=== PATIENT | female | born 1955 | race Caucasian/White ===

== ENCOUNTER 2018-07-08 07:40 | Day surgery (SDC) | payer BC ==
[2018-07-07 09:51] VITALS: BMI 26.9
[~2018-07-08 07:40] MED LIST: LACTATED RINGERS 1,000 ML IV SCH; LIDOCAINE 1% 20 ML VIAL (10MG/ML) FOR IV START INTRADERMA PRN
[2018-07-08 08:37] VITALS: TEMP 97.1
[2018-07-08] MEDS ORDERED: fentaNYL (PF) 50 MCG/ML 2 ML AMP IVP ONE (08:39)
[2018-07-08] MEDS ORDERED: MIDAZOLAM 2 MG/2 ML VIAL ONE (08:46)
[2018-07-08] MEDS ORDERED: PROPOFOL 10 MG/ML 20 ML VIAL IV ONE (08:46)
[2018-07-08] MEDS ORDERED: fentaNYL (PF) 50 MCG/ML 2 ML AMP ONE (08:46)
--- NOTE | 2018-07-08 09:01 | P.PCN ---
Date of Procedure: 07/08/18 Procedure(s) Performed: BRIEF HISTORY: Patient is a 63-year-old pleasant white white female, scheduled for an elective colonoscopy as a part of evaluation of intermittent rectal bleeding for the last 1 month duration. She has been having some constipation for the same duration. PROCEDURE PERFORMED: Colonoscopy. PREOPERATIVE DIAGNOSIS: Rectal bleeding. IV sedation per Anesthesia. PROCEDURE: After informed consent was obtained, the patient, was brought into the endoscopy unit. IV sedation was administered by Anesthesia under continuous monitoring. Digital rectal examination was normal. Initially the Olympus CF- 160 flexible video colonoscope was then inserted in the rectum, gradually advanced into the cecum without any difficulty. Careful examination was performed as the scope was gradually being withdrawn. Ileocecal valve and the appendiceal orifice were visualized and appeared normal. Prep was excellent. Mucosa of the cecum, ascending colon, transverse colon, descending colon, sigmoid colon, and rectum appeared normal. Scattered sigmoid diverticulosis. Retroflexion was performed in the rectum and no lesions were seen. The patient tolerated the procedure well. IMPRESSION: Normal-appearing colon from rectum to cecum with no evidence of colorectal neoplasia. Scattered sigmoid diverticulosis. RECOMMENDATIONS: Findings of this examination were discussed with the patient as well as a family. She was advised to be a high-fiber diet and take fiber supplements on a regular basis. She can have a repeat screening colonoscopy in 10 years.
[2018-07-08 09:18] VITALS: RESP 16
[2018-07-08 09:50] VITALS: BP 100/62; PULSE 65
== END 2018-07-08 09:51 | disposition home or self-care (01) ==
LOC: ORWHC2ENDO 07:40
PROVIDERS: ATTEND Internal Medicine Gastroenterology
DX: K62.5 Hemorrhage of anus and rectum (principal); K57.30 Diverticulosis of large intestine without perforation or abscess without bleeding; K59.00 Constipation, unspecified; E07.9 Disorder of thyroid, unspecified; K21.9 Gastro-esophageal reflux disease without esophagitis; Z85.3 Personal history of malignant neoplasm of breast; Z98.84 Bariatric surgery status; G25.2 Other specified forms of tremor; Z79.2 Long term (current) use of antibiotics; Z79.890 Hormone replacement therapy; Z79.891 Long term (current) use of opiate analgesic; Z79.810 Long term (current) use of selective estrogen receptor modulators (SERMs); Z79.899 Other long term (current) drug therapy; Z88.0 Allergy status to penicillin; Z88.8 Allergy status to other drugs, medicaments and biological substances; Z91.048 Other nonmedicinal substance allergy status
CPT/HCPCS: 45378; J2250; J3010; J2704

== ENCOUNTER → 2023-12-17 | Outpatient (CLI) | payer MEDICARE, BC ==
--- NOTE | 2023-12-17 14:14 | MR ---
EXAMINATION TYPE: MR cervical spine wo con DATE OF EXAM: 12/17/2023 1:18 PM COMPARISON: NONE HISTORY: Neck pain, headaches, BUE radiculopathy. Multiplanar MultiSpin echo imaging of the cervical spine was performed. Comparison: none C2-C3: No evidence for degenerative disc disease. No disc bulge/herniation or protrusion. No Canal stenosis. Foramina are patent bilaterally. C3-C4: No evidence for degenerative disc disease. No disc bulge/herniation or protrusion. No Canal stenosis. Foramina are patent bilaterally. C4-C5: Mild disc desiccation. Small left paracentral disc bulge. No herniation or central stenosis. N o foraminal encroachment. C5-C6: Moderate to severe disc desiccation. Posterior disc bulge. Effacement ventral thecal sac with mild central stenosis seen. Left greater than right foraminal encroachment. C6-C7: Moderate to severe disc desiccation. Posterior disc bulge. Effacement ventral thecal sac with mild central stenosis seen. Left greater than right foraminal encroachment. C7-T1: No evidence for degenerative disc disease. No disc bulge/herniation or protrusion. No Canal stenosis. Foramina are patent bilaterally. Cervical segments are intact. There is normal alignment. Cervical spinal cord is of normal signal. Craniovertebral junction relationships are within normal limits. IMPRESSION: 1. Mild central stenosis at C5-6 and C6-7 as outlined above.
== END | disposition home or self-care (01) ==
LOC: RADMRIMAIN 12:37
PROVIDERS: ATTEND Orthopaedic Surgery
DX: G95.9 Disease of spinal cord, unspecified (principal); M48.02 Spinal stenosis, cervical region; M54.12 Radiculopathy, cervical region
CPT/HCPCS: 72141

== ENCOUNTER → 2023-12-22 | Outpatient (CLI) | payer MEDICARE, BC | LOC: PNWHC3 10:43 | PROVIDERS: ATTEND Specialist | DX: M48.062 Spinal stenosis, lumbar region with neurogenic claudication | CPT/HCPCS: 99211 ==

== ENCOUNTER 2024-01-01 06:41 | Day surgery (SDC) | payer MEDICARE, BC ==
[2024-01-01] MEDS ORDERED: methylPREDNISolone ACETATE 80 MG/ML 1 ML VIAL ONE (08:26)
[2024-01-01] MEDS ORDERED: ROPIVACAINE 5MG/ML 20ML VIAL ONE (08:26)
--- NOTE | 2024-02-17 18:21 | FL ---
EXAMINATION TYPE: FL guided pain mgmt statistic DATE OF EXAM: 01/20/2024 4:52 PM COMPARISON: Pre Operative Images if available both CT/MRI or plain film CLINICAL INDICATION: Female, 69 years old with history of LESI; TECHNIQUE: FL guided pain mgmt statistic, multiple fluoroscopic images provided for procedure. Total fluoroscopy time: 8.1 seconds Total submitted images to PACS: 2 DAP: 0.2928 mGym2 Gycm2 uGym2 cGycm2 or equivalent. FINDINGS: Fluoroscopic images during injection for pain management demonstrate multilevel degeneration changes throughout the spine. No evidence for fracture. No acute process identified. IMPRESSION: 1. No evidence for intraoperative complication. 2. Please see the operative/procedural note for further details. [facility], , 02/17/2024 6:18 PM
== END 2024-01-01 09:11 ==
LOC: ORPAIN 06:41
PROVIDERS: ATTEND Pain Medicine Interventional Pain Medicine
DX: M47.26 Other spondylosis with radiculopathy, lumbar region (principal)
CPT/HCPCS: 62323

== ENCOUNTER → 2024-01-15 | Outpatient (CLI) | payer MEDICARE, BC ==
[2024-01-15 10:29] VITALS: BP 119/65; PULSE 85; RESP 17
--- NOTE | 2024-01-15 14:39 | P.PAINPG ---
Objective - Vital Signs Vital signs: Intake & Output 01/14/24 01/15/24 01/15/24 18:59 06:59 18:59 Weight 143 kg PQRS Measure Charge Sheet Comment: A 68 yr old female w at side with a history of severe and chronic LBP secondary to lumbar DDD and spondylosis with facet arthropathy without myelopathy presents today for evaluation s/p BAO L4-L5 #1. Pt states she experienced 20% pain relief s/p procedure. Pain level is provoked at 6 /10 in intensity, constant, predominantly axial, localized in the lumbar spine, achy in character without shooting pain. Pain is provoked by over activity. Pain is alleviated with PT x 6 wks in Fall 2022, HEP exercises every other day since Fall 2022, medications (Tyl #3), repositioning and rest. Interventional pain procedures completed include BAO L4-L5 x1 Patient is currently on Tyl #3 Patient denies any side effects of the medication(s), denies excessive drowsiness or sleepiness, denies suicidal ideation and reports that the current pain medication is helping to control the pain and improve activities of daily living. Patient denies any motor or sensory deficits. Patient denies any fever or night sweats, denies any change in the bowel movements or urination. Physical Examination: -Constitutional: Cooperative. Not in acute distress . - Neurologic: Cranial nerve II to XII intact. No focal neurological deficits. - Psychatric: Alert & oriented x 3. Matching mood & appropriate affect. Judgment and insight intact. - Musculoskeletal: Cervical spine: Muscle bulk/ tone/ strength in the bilateral upper extremities normal Vertebral body tenderness to palpation over Spurling test positive Distraction test positive Facet loading test positive TTP Thoracic spine Muscle bulk / tone/ strength in the bilateral paraspinal muscles normal Vertebral body tender to palpation over Facet loading test positive TTP Lumbar spine: Motor bulk/ tone/ strength lower extremities , thigh and legs : 5/5 Deep tendon reflexes : Normal Knee Jerk. Normal Ankle Jerk . Vertebral body tenderness to palpation over L4 Vann Test positive Lumbar Facet Loading Test positive L4-L5, L5-S1 Straight Leg Raise: positive at 30 degrees right side/ left side Gaenslen's Test positive Sacral spine : Severe tenderness over the Sacroiliac joint: right side / left side Range of motion: Flexion of the lumbar spine <60 degrees Range of motion: Extension of the lumbar spine <20 degrees Gaenslen's Test positive right side / left side Guille test: positive right side / left side Thigh Thrust Test positive right side / left side Sacral Thrust Test positive right side / left side Imaging: MRI non contrast of the lumbar spine from 06/25/23 reviewed Assessment and plan: Chronic LBP secondary to lumbar radiculopathy, spondylosis with facet arthropathy without myelopathy Recommendation of BL MBB L4-L5, L5-S1 #1. Risks, benefits of procedure d iscussed and pt verbalized understanding. Admits to anticoagulant use or medical history of diabetes. Protocol for discontinuation/ continuation of medications bessy procedure discussed. Minimal anesthesia provided, if clinically indicated, consisting of Versed and Fentanyl. All questions answered. I have spent less than 30 minutes on patient care today. Dr Bright was available by phone for the evaluation of this patient. The time was used to review the medical records including relevant urine studies and Prescription history (MAPs), review of the available imaging, evaluation and examination of the patient, coordination of care with the medical staff and if applicable referring physicians, as well as creation of the medical record PQRS Narrative: Smoking Status Former smoker Home Medications: Ambulatory Orders ALPRAZolam [Xanax] 1 mg PO TID PRN 07/07/18 Acetaminophen with Codeine [Acetaminophen-Cod #4 Tablet] 1 tab PO QID PRN 07/07/18 Biotin (Unknown Dose) 1 tab PO DAILY 07/07/18 Calcium Carbonate [Calcium] 600 mg PO BID 07/07/18 Cholecalciferol [Vitamin D3] 1,000 unit PO BID 07/07/18 Citalopram Hydrobromide [Citalopram HBr] 40 mg PO DAILY 07/07/18 Cyanocobalamin (Vitamin B-12) [Vitamin B-12] 1,000 mcg PO DAILY 07/07/18 Doxycycline Hyclate [Vibramycin] 100 mg PO BID 07/07/18 Ferrous Sulfate [Slow Fe] 45 mg PO DAILY 07/07/18 Levothyroxine Sodium [Synthroid] 1.5 tab PO MOFR 07/07/18 Levothyroxine Sodium [Synthroid] 125 mcg PO SUTUWETHSA 07/07/18 Magnesium 400 mg PO BID 07/07/18 Metoprolol Tartrate [Lopressor] 50 mg PO HS 07/07/18 Multivitamin/Iron/Folic Acid [Centrum Adults Tablet] 1 each PO DAILY 07/07/18 Pantoprazole Sodium [Protonix] 40 mg PO DAILY 07/07/18 Potassium Chloride [Klor-Con 10] 10 meq PO BID 07/07/18 Primidone [Mysoline] 250 mg PO BID 07/07/18 Red Yeast Rice 1,200 mg PO DAILY 07/07/18 Tamoxifen Citrate 20 mg PO DAILY 07/07/18 traZODone HCL 200 mg PO HS 07/07/18 Controlled Substance Measures - Controlled Substance Measures Is patient prescribed a controlled substance at discharge?: No
== END ==
LOC: PNWHC3 09:42
PROVIDERS: ATTEND Specialist
DX: M54.16 Radiculopathy, lumbar region
CPT/HCPCS: 99211